=== PATIENT | male | born 1985 | race Caucasian/White ===

== ENCOUNTER 2017-03-14 22:14 | Emergency (ER) | payer BC ==
[2017-03-14 22:43] VITALS: BP 116/72; PULSE 65; RESP 16; TEMP 98.4; O2SAT 99
[2017-03-14 23:26] LABS: BASO % 0.8 % (0.0-2.0); EOS # 0.2 K/uL (0.0-0.7); EOS % 3.2 % (0.0-4.0); HEMATOCRIT 39.3 % (35.0-51.0); LYMPH # 1.9 K/uL (1.0-4.3); LYMPH % 34.2 % (20.0-40.0); MEAN CELL VOLUME 85.3 fL (80.0-94.0); MEAN CORPUSCULAR HEMOGLOBIN 29.5 pg (27.0-31.0); MEAN CORPUSCULAR HGB CONC 34.5 g/dL (33.0-37.0); MEAN PLATELET VOLUME 7.5 fL (7.2-11.7); MONO # 0.7 K/uL (0.0-0.8); RED CELL DISTRIBUTION WIDTH 14.2 % (11.5-14.5); WHITE BLOOD COUNT 5.7 K/uL (4.8-10.8)
[2017-03-14 23:35] LABS: CHLORIDE 97 mmol/L (98-107); POTASSIUM 3.5 mmol/L (3.6-5.2); SODIUM 135 mmol/L (132-148)
[2017-03-14 23:37] LABS: BILIRUBIN,TOTAL 0.3 mg/dL (0.2-1.3); CARBON DIOXIDE 27 mmol/L (22-30); GFR AFRICAN-AMERICAN > 60
[2017-03-14 23:38] LABS: ALB/GLOB RATIO 1.1 (1.0-2.1); ALKALINE PHOSPHATASE 42 U/L (38-126); ALT/SGPT 45 U/L (21-72); AST/SGOT 41 U/L (17-59); BLOOD UREA NITROGEN 17 mg/dL (9-20); GLUCOSE,RANDOM 92 mg/dL (75-110); TOTAL PROTEIN 7.1 g/dL (6.3-8.3)
--- NOTE | 2017-03-15 00:37 | C.PDOC ---
History Of Present Illness Patient is a 31 y/o male who presents to the ED with a complaint of upper left chest pain since this morning. Patient states he pulled over while driving to work to stretch out his arms in an effort to alleviate the pain; after approximately 40 minutes, chest pain lessened and resolved. Denies any other associated symptoms experienced this morning. Patient notes on the way home from work, he experienced intermittent pain then at home the same sharp chest pain recurred. Patient describes pain as "sharp" and "tight". Denies SOB, n/v, diaphoresis, dizziness, or URI symptoms. Patient has no PMHx of these symptoms. Patient did not take any pain medication as symptoms improved [employer]. Time Seen by Provider: 03/14/17 22:56 Chief Complaint (Nursing): Chest Pain History Per: Patient History/Exam Limitations: no limitations Onset/Duration Of Symptoms: Hrs (symptoms began this morning) Current Symptoms Are (Timing): Still Present Quality: Sharp, Tightness Alleviating Factors: Other (thoroughly stretching arms) Recent travel outside of the [place]: No Past Medical History Reviewed: Historical Data, Nursing Documentation, Vital Signs Vital Signs: Last Vital Signs Temp 98.4 F 03/14/17 22:37 Pulse 65 03/14/17 22:37 Resp 16 03/14/17 22:37 BP 116/72 03/14/17 22:37 Pulse Ox 99 03/15/17 01:20 - Medical History PMH: No Chronic Diseases Surgical History: No Surg Hx Family History: States: Unknown Family Hx - Social History Hx Tobacco Use: No Hx Alcohol Use: Yes Hx Substance Use: No - Immunization History Hx Tetanus Toxoid Vaccination: No Hx Influenza Vaccination: No Hx Pneumococcal Vaccination: No Review Of Systems Constitutional: Negative for: Sweats ENT: Negative for: Nose Discharge, Nose Congestion, Throat Pain Cardiovascular: Positive for: Chest Pain (L upper chest) Respiratory: Negative for: Cough, Shortness of Breath, Sputum, Wheezing Gastrointestinal: Negative for: Nausea, Vomiting Neurological: Negative for: Dizziness Physical Exam - Physical Exam Appears: Well, Non-toxic, In Acute Distress (mild) Head: Normacephalic Eye(s): bilateral: Normal Inspection, PERRL Neck: Normal, Supple Chest: Symmetrical, Tenderness (minimal left chest wall tenderness) Cardiovascular: Rhythm Regular, No Murmur Respiratory: Normal Breath Sounds, No Rales, No Rhonchi, No Wheezing Gastrointestinal/Abdominal: Normal Exam, No Tenderness Extremity: No Pedal Edema, No Calf Tenderness Neurological/Psych: Oriented x3, Normal Speech, Normal Cognition Gait: Steady ED Course And Treatment - Laboratory Results Result Diagrams: 03/14/17 23:22 03/14/17 23:22 ECG Rhythm: Sinus Rhythm, ST/T Changes (normal) Rate From EC (bpm) O2 Sat by Pulse Oximetry: 99 (room air) Pulse Ox Interpretation: Normal - Radiology CXR: Interpreted by Me, Viewed By Me CXR Interpretation: Yes: No Acute Disease Progress Note: EKG and CXR ordered; Aspririn administered. Patient noted pain to have improved and he's sleeping soundly in ED. Pt does not demonstrate any risk factors for PE or aortic dissection. All labs incl CXR and EKG reviewed and d/w pt. Pt does agree with plan and was advised to follow up with PCP. Pt understands to return to ER immediately for persistent recurring CP, SOB,, diaphoresis, palpitations syncope or worse. Reassessment Condition: Improved Disposition Counseled Patient/Family Regarding: Diagnosis, Need For Followup, Rx Given - Disposition Disposition: HOME/ ROUTINE Disposition Time: 00:34 Condition: STABLE Additional Instructions: Please follow up with PMD - Call for appointment for possible Cardiology referral Take meds as directed Return to ER if worse Prescriptions: Ibuprofen [Motrin] 600 mg PO Q6H #30 tab Instructions: Chest Pain (ED) Forms: [facility] (Malay), Work Excuse - Clinical Impression Clinical Impression: Chest pain - Scribe Statement The provider has reviewed the documentation as recorded by the Scribe Jessica Steve All medical record entries made by the Scribe were at my direction and personally dictated by me. I have reviewed the chart and agree that the record accurately reflects my personal performance of the history, physical exam, medical decision making, and the department course for this patient. I have also personally directed, reviewed, and agree with the discharge instructions and disposition.
--- NOTE | 2017-03-15 07:54 | RAD ---
HISTORY: chest pain COMPARISON: No prior. TECHNIQUE: Chest PA and lateral FINDINGS: LUNGS: No active pulmonary disease. PLEURA: No significant pleural effusion identified. No pneumothorax apparent. CARDIOVASCULAR: Normal. OSSEOUS STRUCTURES: No significant abnormalities. VISUALIZED UPPER ABDOMEN: Normal. OTHER FINDINGS: None. IMPRESSION: No active disease.
--- NOTE | 2017-03-15 12:29 | CARD ---
APPROVED REPORT EKG Measurement Heart [id number] <Conclusion> Normal sinus rhythm Normal ECG
== END 2017-03-15 00:40 | disposition home or self-care (01) ==
LOC: C.ER 22:14
DX: R07.9 Chest pain, unspecified (principal)